=== PATIENT | female | born 2000 ===

== ENCOUNTER 2018-11-25 18:52 | Emergency (ER) | payer SELFPAY ==
[~2018-11-25] VITALS: Ht 162.6 cm; Wt 79.5 kg
[2018-11-25 19:05] VITALS: BP 166/95; TEMP 98.8
[2018-11-25 19:48] VITALS: PULSE 84
== END 2018-11-25 19:48 | disposition home or self-care (01) ==
LOC: COL.ER 18:52
DX: S61.412A Laceration without foreign body of left hand, initial encounter (principal); W26.0XXA Contact with knife, initial encounter; Y92.009 Unspecified place in unspecified non-institutional (private) residence as the place of occurrence of the external cause

== ENCOUNTER → 2021-08-02 | Outpatient (CLI) | payer SELFPAY | LOC: COL.RAD 10:11 | DX: Z30.431 Encounter for routine checking of intrauterine contraceptive device (principal); T83.32XA Displacement of intrauterine contraceptive device, initial encounter; Z97.5 Presence of (intrauterine) contraceptive device ==

== ENCOUNTER 2022-03-02 06:22 | Emergency (ER) | payer BC ==
[~2022-03-02] VITALS: Ht 165.1 cm; Wt 90.9 kg
[2022-03-02 06:28] VITALS: TEMP 99
[2022-03-02] MEDS ORDERED: MEDROL 4MG DOSPA4 MG PO (08:16)
[2022-03-02 08:42] VITALS: BP 118/86; PULSE 75
== END 2022-03-02 08:42 | disposition home or self-care (01) ==
LOC: COL.ER 06:22
DX: M54.12 Radiculopathy, cervical region (principal); R07.89 Other chest pain; F17.200 Nicotine dependence, unspecified, uncomplicated; Z28.310 Unvaccinated for COVID-19